=== PATIENT | male | born 1995 | race Caucasian/White ===

== ENCOUNTER 2017-06-18 07:17 | Emergency (ER) | payer MEDICAID ==
[~2017-06-18] VITALS: Ht 185.4 cm; Wt 69.4 kg
[2017-06-18 07:20] VITALS: BP 151/89
[2017-06-18 08:08] LABS: BASOPHILS % (AUTO) 0.3 % (0-1); EOSINOPHILS # (AUTO) 0.2 X10'3 (0-0.9); EOSINOPHILS % (AUTO) 4.8 % (0-6); HEMATOCRIT 46.3 % (42.0-52.0); HEMOGLOBIN 16.3 g/dl (14.0-17.9); LYMPHOCYTES # (AUTO) 1.4 X10'3 (1.1-4.8); LYMPHOCYTES % (AUTO) 32.2 % (21-51); MEAN CORPUSCULAR HEMOGLOBIN 32.8 PG (27.0-31.0); MEAN CORPUSCULAR HGB CONC 35.1 % (33.0-36.5); MEAN CORPUSCULAR VOLUME 93.3 FL (78-98); MEAN PLATELET VOLUME 8.7 FL (7.4-10.4); MONOCYTES # (AUTO) 0.3 X10'3 (0-0.9); MONOCYTES % (AUTO) 6.5 % (2-12); NEUTROPHILS # (AUTO) 2.5 X10'3 (1.8-7.7); NEUTROPHILS % (AUTO) 56.2 % (42-75); PLATELET COUNT 188 X10'3 (140-440); RED BLOOD COUNT 4.97 X10'6 (4.70-6.10); RED CELL DISTRIBUTION WIDTH 12.7 % (11.5-14.5); WHITE BLOOD COUNT 4.5 X10'3 (4.5-11.0)
[2017-06-18 08:31] LABS: ALANINE AMINOTRANSFERASE 23 U/L (12-78); ALBUMIN 4.4 G/DL (3.4-5.0); ALBUMIN/GLOBULIN RATIO 1.3 (1.1-1.5); ALKALINE PHOSPHATASE 74 IU/L (46-116); ANION GAP 7 (8-16); ASPARTATE AMINO TRANSFERASE 18 U/L (10-37); BILIRUBIN,TOTAL 0.5 MG/DL (0.1-1.0); BLOOD UREA NITROGEN 11 MG/DL (7-18); BUN/CREATININE RATIO 10.7 (5.4-32.0); CALCIUM 9.2 MG/DL (8.5-10.1); CHLORIDE 109 MMOL/L (99-107); CREATININE 1.03 MG/DL (0.60-1.10); GLUCOSE 105 MG/DL (70-104); POTASSIUM 4.1 MMOL/L (3.5-5.1); SODIUM 146 MMOL/L (135-145); TOTAL CARBON DIOXIDE 30.2 MMOL/L (24-32); TOTAL PROTEIN 7.7 G/DL (6.4-8.2); eGFR 89 ML/MIN
[2017-06-18 08:35] LABS: ETHANOL < 0.010 GM/DL (0.0-0.010)
[2017-06-18] MEDS ORDERED: LORazepam 0.5 MG tablet PO PRN (09:30)
[2017-06-18 11:46] LABS: CLARITY,URINE CLEAR (Clear); COLOR,URINE YELLOW (Yellow); GLUCOSE, URINE NEGATIVE (Neg); KETONES,URINE NEGATIVE (Neg); LEUKOCYTE ESTERASE ,URINE NEGATIVE (Neg); NITRITES, URINE NEGATIVE (Neg); OCCULT BLOOD,URINE NEGATIVE (Neg); PROTEIN,URINE NEGATIVE (Neg)
[2017-06-18 11:47] LABS: UA COLLECTION TYPE CLN CATCH MIDSTREAM
[2017-06-18 11:56] LABS: URINE AMPHETAMINE SCREEN NEGATIVE (Neg); URINE BARBITUATE SCREEN NEGATIVE (Neg); URINE BENZODIAZEPINES SCREEN POSITIVE (Neg); URINE CANNABINOID SCREEN NEGATIVE (Neg); URINE COCAINE SCREEN NEGATIVE (Neg); URINE METHADONE SCREEN NEGATIVE (Neg); URINE OPIATE SCREEN NEGATIVE (Neg); URINE PHENCYCLIDINE SCREEN NEGATIVE (Neg)
[2017-06-18] MEDS ORDERED: OLANZapine 2.5MG tablet PO PRN (13:50)
[2017-06-18] MEDS ORDERED: NO HOME MEDS (14:00)
[2017-06-18] MEDS ORDERED: OLANZapine 2.5MG tablet PO SCH (17:00)
[2017-06-18] MEDS ORDERED: clonazePAM 1mg tablet PO SCH (21:00)
== END 2017-06-18 17:56 ==
LOC: ER 07:18
DX: F22 Delusional disorders (principal)
CPT/HCPCS: 36415; 70450; 80053; 80305; 80320; 81003; 84443; 85025; 99285

== ENCOUNTER 2025-02-05 00:35 | Emergency (ER) | payer MEDICAID ==
[~2025-02-05] VITALS: Ht 185.4 cm; Wt 81.8 kg
[~2025-02-05 00:35] MED LIST: NO HOME MEDS
[2025-02-05 00:37] VITALS: BP 140/90; PULSE 96; RESP 20; TEMP 98; O2SAT 96
[2025-02-05] MEDS ORDERED: SERT-433 PO (01:10)
[2025-02-05] MEDS ORDERED: ARIP10TA87 PO (01:10)
--- NOTE | 2025-02-05 04:02 | Physician Documentation ---
Signature Scribe Signature: na Attestation: na Addendum I signed up for this patient, but he eloped from the emergency department before I saw him. I did not see or evaluate this patient [email or web address] Wilson MD, MD Feb 05, 2025 04:02
== END 2025-02-05 03:27 | disposition left against medical advice (07) ==
LOC: ER 00:35
DX: T78.49XA Other allergy, initial encounter (principal); Y92.89 Other specified places as the place of occurrence of the external cause; Z53.21 Procedure and treatment not carried out due to patient leaving prior to being seen by health care provider
CPT/HCPCS: 99281